=== PATIENT | female | born 1950 | race Caucasian/White ===

== ENCOUNTER 2017-07-15 05:42 | Day surgery (SDC) | payer MEDICARE, OTHER ==
[~2017-07-15] VITALS: Ht 157.5 cm; Wt 72.1 kg
[~2017-07-15 05:42] MED LIST: ASPI-535 PO; CALC1TAB98 PO; EST42.5C VAG; IBUP-1542 PO; LOSA1TAB9 PO; OXYB5SYR2 PO; PRAV10TA43 PO
[2017-07-15 06:21] VITALS: Ht 157.5 cm; Wt 72.1 kg
[2017-07-15 07:06] VITALS: BP 136/69; PULSE 71; RESP 22
--- NOTE | 2017-07-15 07:41 | OPPN ---
Date/Time of Note Date/Time of Note DATE: 07/15/17 TIME: 07:40 Operative Report Preoperative Diagnosis Abdominal pain Chronic heartburn Postoperative Diagnosis Gastroesophageal reflux disease Gastritis with erosions Operation/Procedure Performed Esophagogastroduodenoscopy and biopsy Surgeon see signature line food and beverage assistant None Anesthesia: moderate sedation Estimated blood loss: none Transfusion Required none Specimen Gastric mucosal biopsy Grafts/Implants none Complications none KATYA STINSON MD Jul 15, 2017 07:41
[2017-07-15] MEDS ORDERED: FENTAnyl 50 MCG/ML VIAL ONE (07:43)
[2017-07-15] MEDS ORDERED: MIDAZOLAM 1 MG/ML 2 ML INJ ONE (07:43)
[2017-07-15 08:01] VITALS: BP 106/65; RESP 14
--- NOTE | 2017-07-15 15:59 | OPR ---
DATE OF OPERATION: NAME OF PROCEDURES: Esophagogastroduodenoscopy and biopsy. SURGEON: Katya Landon MD PREOPERATIVE DIAGNOSES: 1. Abdominal pain. 2. Chronic heartburn. POSTOPERATIVE DIAGNOSES: 1. Gastroesophageal reflux disease. 2. Gastritis with erosions. 3. Gastric mucosal biopsies were taken for Helicobacter pylori test. INDICATION FOR THE PROCEDURE: Ms. Erick Anderson is a 66-year-old female patient who had uppe r abdominal pain and chronic heartburn, not responding to therapy. The patient was scheduled for en doscopic examination for further evaluation. The procedure and possible complications are well explained to the patient. The patient understood and consented to the procedure. DESCRIPTION OF PROCEDURE: Under the influence of fentanyl and Versed, the gastroscope was carefully introduced into the esophagus and under direct vision, it was advanced to the stomach and through t he pylorus into the duodenal bulb and descending duodenum. FINDINGS: ESOPHAGUS: The patient had gastroesophageal reflux disease. STOMACH: She had gastritis with erosions. Gastric mucosal biopsies were taken for H. pylori test. DUODENUM: Normal. She tolerated the procedure very well, and there was no complication from the procedure. At the end of the procedure she was awake with stable vital signs, and she was discharged home to the care of her family. IMPRESSION: 1. Gastroesophageal reflux disease. 2. Gastritis with erosions. 3. Gastric mucosal biopsies were taken for Helicobacter pylori test. PLAN: 1. Pantoprazole 40 mg p.o. q.a.m. 2. Await H. pylori test report. Dictated By: KATYA GUY/GUERLINE Conf#: [id number] DID#: [id number]
== END 2017-07-15 10:49 | disposition home or self-care (01) ==
LOC: GIL 05:42
PROVIDERS: ATTEND Internal Medicine Gastroenterology
DX: R10.9 Unspecified abdominal pain (principal); K21.9 Gastro-esophageal reflux disease without esophagitis; K29.70 Gastritis, unspecified, without bleeding; K25.9 Gastric ulcer, unspecified as acute or chronic, without hemorrhage or perforation; E78.5 Hyperlipidemia, unspecified; I10 Essential (primary) hypertension
CPT/HCPCS: 43239; 87081; J2250; J3010